=== PATIENT | male | born 1965 | race Caucasian/White ===

== ENCOUNTER 2024-01-05 09:15 | Emergency (ER) | payer BC ==
[~2024-01-05] VITALS: Ht 172.7 cm; Wt 65.6 kg
[2024-01-05] MEDS ORDERED: NO HOME MEDS (09:33)
[2024-01-05 09:34] LABS: BASOPHILS % (AUTO) 0.2 % (0-1); EOSINOPHILS % (AUTO) 0.3 % (0-6); HEMATOCRIT 51.7 % (42.0-52.0); HEMOGLOBIN 17.7 g/dl (14.0-17.9); LYMPHOCYTES # (AUTO) 1.6 X10'3 (1.1-4.8); LYMPHOCYTES % (AUTO) 13.1 % (21-51); MEAN CORPUSCULAR HEMOGLOBIN 32.8 PG (27.0-31.0); MEAN CORPUSCULAR HGB CONC 34.2 g/dL (33.0-36.5); MEAN CORPUSCULAR VOLUME 95.7 FL (78-98); MEAN PLATELET VOLUME 7.6 FL (7.4-10.4); MONOCYTES # (AUTO) 0.6 X10'3 (0-0.9); MONOCYTES % (AUTO) 4.9 % (2-12); NEUTROPHILS # (AUTO) 9.8 X10'3 (1.8-7.7); NEUTROPHILS % (AUTO) 81.5 % (42-75); PLATELET COUNT 183 X10'3 (140-440); RED BLOOD COUNT 5.41 X10'6 (4.70-6.10); RED CELL DISTRIBUTION WIDTH 12.2 % (11.5-14.5)
[2024-01-05 09:58] LABS: ALBUMIN 4.2 G/DL (3.4-5.0); ANION GAP 12 (8-16); BLOOD UREA NITROGEN 11 MG/DL (7-18); CALCIUM 9.7 MG/DL (8.5-10.1); CHLORIDE 103 MMOL/L (99-107); GLUCOSE 124 MG/DL (70-104); POTASSIUM 3.7 MMOL/L (3.5-5.1); PRO BRAIN NATRIURETIC PEPTIDE 31 PG/ML (0-125); SODIUM 140 MMOL/L (135-145); TOTAL CARBON DIOXIDE 25.1 MMOL/L (24-32); eCRCL 76 ML/MIN; eGFR 77 ML/MIN
[2024-01-05] MEDS: normal saline 1000ml 1,000 ML IV ONE (10:12)
[2024-01-05] MEDS ORDERED: iohexol 300mg/ml 100ml inj. ONE (10:30)
[2024-01-05 10:57] VITALS: TEMP 98
[2024-01-05 11:47] VITALS: BP 139/85; PULSE 68; RESP 16; O2SAT 99
== END 2024-01-05 12:02 | disposition home or self-care (01) ==
LOC: ER 09:15
DX: R07.9 Chest pain, unspecified (principal); R14.0 Abdominal distension (gaseous); R11.0 Nausea; R63.0 Anorexia; D72.828 Other elevated white blood cell count; R00.2 Palpitations
CPT/HCPCS: 36415; 71045; 74177; 80048; 83880; 84484; 85025; 93005; 96360; 96361; 99285; J7030; Q9967

== ENCOUNTER 2024-07-27 11:50 | Emergency (ER) | payer BC ==
[~2024-07-27] VITALS: Ht 172.7 cm; Wt 65.4 kg
[~2024-07-27 11:50] MED LIST: NO HOME MEDS
[2024-07-27 12:04] VITALS: BP 139/94; PULSE 72; RESP 16; O2SAT 99
[2024-07-27] MEDS ORDERED: AMOX-580 PO (12:26)
[2024-07-27] MEDS: LIDOcaine 1% W/epiNEPHrine 1:100,000 20ml vial IJ ONE (12:30)
[2024-07-27] MEDS: LIDOcaine/epinephrine/tetracaine TOPICAL sol 3 ML syringe TOP ONE (12:40)
[2024-07-27] MEDS: TETanus/Pertussis (Acell)/Diphther VAC/PF (Tdap-Adult) 0.5ml syringe IMVAC ONE (13:26)
[2024-07-27 13:36] VITALS: TEMP 98.5
== END 2024-07-27 13:33 | disposition home or self-care (01) ==
LOC: ER 11:51
DX: S01.81XA Laceration without foreign body of other part of head, initial encounter (principal); W54.0XXA Bitten by dog, initial encounter; Y93.89 Activity, other specified; Y92.89 Other specified places as the place of occurrence of the external cause; Y99.8 Other external cause status
CPT/HCPCS: 12011; 90471; 90715; 99283; J3490; A6449